=== PATIENT | male | born 1945 | race Caucasian/White ===

== ENCOUNTER 2019-02-05 08:33 | Day surgery (SDC) | payer MEDICARE, OTHER ==
[~2019-02-05] VITALS: Ht 182.9 cm; Wt 85.2 kg
[~2019-02-05 08:33] MED LIST: ASPI81CH PO; ATOR10 PO; ATOR80 PO; Cialis20 MG PO; Depo-Testos200 MG/ML IM; Viagra100 MG PO
== END 2019-02-05 10:30 | disposition home or self-care (01) ==
LOC: ORSCSDS 08:33
PROVIDERS: Surgery
PROC: 0DBM8ZX Excision of Descending Colon, Via Natural or Artificial Opening Endoscopic, Diagnostic (ICD-10-PCS; principal; 2019-02-05 09:45)
DX: Z12.11 Encounter for screening for malignant neoplasm of colon (principal); D12.4 Benign neoplasm of descending colon; Z86.010 Personal history of colon polyps; I10 Essential (primary) hypertension; E78.5 Hyperlipidemia, unspecified; Z79.82 Long term (current) use of aspirin; Z79.899 Other long term (current) drug therapy
CPT/HCPCS: 88305; J2704; J7120

== ENCOUNTER → 2021-08-20 | Outpatient (CLI) | payer MEDICARE, OTHER | END | disposition home or self-care (01) | LOC: LAB SHORT 07:42 → LAB 07:42 → PLD 07:42 | DX: D04.61 Carcinoma in situ of skin of right upper limb, including shoulder (principal) | CPT/HCPCS: 88305 ==

== ENCOUNTER → 2021-08-28 | Outpatient (CLI) | payer MEDICARE, OTHER | END | disposition home or self-care (01) | LOC: LAB SHORT 07:58 → LAB 07:58 | DX: D04.61 Carcinoma in situ of skin of right upper limb, including shoulder (principal) | CPT/HCPCS: 88305 ==

== ENCOUNTER 2021-10-20 22:31 | Emergency (ER) | payer MEDICARE, OTHER ==
[~2021-10-20] VITALS: Ht 180.3 cm; Wt 90.7 kg
[2021-10-20 22:57] LABS: BASOPHILS ABSOLUTE AUTO 0.04 K/mm3 (0.00-0.23); BASOPHILS PERCENT AUTO 1 % (0-2); EOSINOPHILS ABSOLUTE AUTO 0.12 K/mm3 (0.00-0.68); EOSINOPHILS PERCENT AUTO 1 % (0-6); Hematocrit 47.3 % (37.0-53.0); Hemoglobin 15.5 g/dL (13.5-17.5); IMMATURE GRAN ABSOLUTE AUTO 0.03 K/mm3 (0.00-0.10); IMMATURE GRAN PERCENT AUTO 0 % (0-1); LYMPHOCYTES ABSOLUTE AUTO 1.76 K/mm3 (0.84-5.20); LYMPHOCYTES PERCENT AUTO 21 % (21-46); MONOCYTES ABSOLUTE AUTO 0.72 K/mm3 (0.16-1.47); MONOCYTES PERCENT AUTO 8 % (4-13); Mean Corpuscular HGB 30.3 pg (26.0-34.0); Mean Corpuscular HGB Conc 32.8 g/dL (31.5-36.5); Mean Corpuscular Volume 93 fL (80-100); Mean Platelet Volume 9.8 fL (9.1-12.4); NEUTROPHILS ABSOLUTE AUTO 5.87 K/mm3 (1.96-9.15); NEUTROPHILS PERCENT AUTO 69 % (41-73); Platelet Count 212 K/mm3 (150-400); RDW Coefficient Variation 14.1 % (11.7-14.2); RDW Standard Deviation 47.9 fL (35.1-46.3); Red Blood Cell Count 5.11 M/mm3 (4.30-5.90); White Blood Cell Count 8.54 K/mm3 (4.00-11.30)
[2021-10-20] MEDS ORDERED: METFORMIN HCL500 M3 PO (23:24)
[2021-10-20 23:26] LABS: Creatinine, Blood 1.69 mg/dL (0.60-1.20); Potassium, Blood 4.7 mmol/L (3.5-5.5); Thyroid Stimulating Hormone 2.51 uIU/mL (0.360-4.800)
[2021-10-20 23:46] LABS: Source, Urine Clean Catch
[2021-10-20 23:56] LABS: Bilirubin, Urine Neg (Neg); Blood, Urine 1+ (Neg); Glucose Qualitative, Urine Neg (Neg); Ketones, Urine 1+ (Neg); Leukocyte Esterase, Urine Neg (Neg); Nitrite, Urine Neg (Neg); Protein, Urine 2+ (Neg); Urobilinogen, Urine 1+ (Normal)
[2021-10-20 23:59] LABS: Influenza A, PCR NEGATIVE (NEGATIVE); Influenza B, PCR NEGATIVE (NEGATIVE); Resp Syncytial Virus, PCR NEGATIVE (NEGATIVE)
[2021-10-21 00:04] LABS: Appearance, Urine Clear (Clear); Color, Urine Yellow (P-Yellow)
[2021-10-21 00:05] LABS: Bacteria Not Seen /hpf; Red Blood Cells, Urine 0-2 /hpf (0-2); Squamous Epithelial Cells Not Seen /hpf (Few); White Blood Cells, Urine 0-2 /hpf (0-5)
[2021-10-21 00:05] LABS: SARS-Cov-2 (COVID-19) PCR, MMC POSITIVE (NEGATIVE)
[2021-10-21 00:19] LABS: U Amphetamine Screen Not Detected; U Barbituate Screen Not Detected; U Benzodiazapine Screen Not Detected; U Buprenorphine Screen Not Detected; U Cannabinoids Screen Not Detected; U Cocaine Screen Not Detected; U Methadone Screen Not Detected; U Methamphetamine Screen Not Detected; U Opiates Screen Not Detected; U Oxycodone Screen Not Detected; U Phencyclidine Screen Not Detected; U Propoxyphene Screen Not Detected
== END 2021-10-21 01:15 | disposition home or self-care (01) ==
LOC: ER 22:31
PROVIDERS: Student in an Organized Health Care Education/Training Program
DX: U07.1 COVID-19 (principal); I10 Essential (primary) hypertension; R41.0 Disorientation, unspecified; E78.5 Hyperlipidemia, unspecified; E03.9 Hypothyroidism, unspecified; Z79.899 Other long term (current) drug therapy; Z79.82 Long term (current) use of aspirin
CPT/HCPCS: 0241U; 36415; 70450; 80048; 81001; 82947; 84443; 85025; 93005; 93010; 99285-25; J7030

== ENCOUNTER 2024-06-18 09:59 | Day surgery (SDC) | payer MEDICARE, OTHER ==
[~2024-06-18] VITALS: Ht 182.9 cm; Wt 86.6 kg
[~2024-06-18 09:59] MED LIST changes: -ATOR10 PO; +ATOR40TA PO; +Lactated Ringer's 1,000 ML IV SCH; +METF500 PO; +TADA10TA PO; +TAMS.4ER PO; +VITAMIN B122500 MC1 PO; +Vitamin D1000 UNI1 PO
[2024-06-18 10:23] VITALS: BP 156/78
--- NOTE | 2024-06-18 10:31 | NUR ---
Ambulatory in Day Surgery History, Chart, Medications and Allergies reviewed before start of procedure. Pre-Op teaching done. Pt verbalizes understanding. Patient States Post-Procedure ride home has been arranged.
[2024-06-18] MEDS ORDERED: propofoL 20 ML IV ONE (10:50)
--- NOTE | 2024-06-18 10:58 | NUR ---
06/18/24 1058 Jefry Martinez History, Chart, Medications and Allergies reviewed before start of procedure. MONITOR INTACT WITH CONTINUOUS PULSE OXIMETRY, CONTINUOUS END TITAL CO2, 3-LEAD EKG AND INTERMITTENT BLOOD PRESSURE. 3-LEAD EKG REVIEWED WITH PHYSICIAN PRIOR TO START OF PROCEDURE. O2 VIA POM INTACT THROUGHOUT SEDATION/PROCEDURE.
[2024-06-18 11:30] VITALS: BP 148/71
--- NOTE | 2024-06-18 11:30 | NUR ---
PT TO DAY SURGERY STEP DOWN FROM COLONOSCOPY. BEDSIDE REPORT RECEIVED. PT IS AKAKE AND ORIENTED, BUT SLEEPY. NO COMPLAINTS.
[2024-06-18 11:45] VITALS: BP 124/69
[2024-06-18 12:00] VITALS: BP 134/65
--- NOTE | 2024-06-18 12:06 | NUR ---
PT WIDE AWAKE. DECLINES PO FLUIDS. Discharge instructions reviewed with patient. Patient verbalizes understanding. Copy given to patient to take home. Patient States Post-Procedure ride home has been arranged.
--- NOTE | 2024-06-18 12:20 | NUR ---
Patient up to Ambulate independently. Gait steady. Discharged via wheelchair to private car for ride home.
== END 2024-06-18 12:30 | disposition home or self-care (01) ==
LOC: ORSCMMR 09:59 → ORD 11:15 → ORSCMMR 12:30
PROVIDERS: Surgery
PROC: 0DJD8ZZ Inspection of Lower Intestinal Tract, Via Natural or Artificial Opening Endoscopic (ICD-10-PCS; principal; 2024-06-18 11:00)
DX: Z12.11 Encounter for screening for malignant neoplasm of colon (principal); Z86.0100 Personal history of colon polyps, unspecified; K21.9 Gastro-esophageal reflux disease without esophagitis; I10 Essential (primary) hypertension; I44.7 Left bundle-branch block, unspecified; G47.33 Obstructive sleep apnea (adult) (pediatric); Z79.82 Long term (current) use of aspirin; Z79.899 Other long term (current) drug therapy
CPT/HCPCS: J2704; J7120